=== PATIENT | male | born 1950 | race Caucasian/White ===

== ENCOUNTER → 2021-05-16 12:49 | Outpatient (CLI) | payer MEDICARE, SELFPAY ==
--- NOTE | ~2021-05-16 | MR_ITS ---
EXAMINATION: MR shoulder RT wo con DATE: 05/16/2021 14:16 INDICATION: Chronic right shoulder pain. TECHNIQUE: Magnetic resonance imaging (MRI) of the right shoulder was performed without intravenous c ontrast. Sequences included axial PD-weighted FS FSE, coronal oblique PD-weighted FS FSE and T2-weigh yaniv FS FSE, and sagittal oblique T2-weighted FS FSE and T1-weighted FSE. COMPARISON: None. FINDINGS: Coracoacromial arch: The acromion undersurface is curved in morphology (type II). There is severe acromioclavicular joint osteoarthritis including inferiorly directed osteophytes. There is mild subacromial/subdeltoid bursit is. Rotator cuff: There is severe supraspinatus tendinopathy with shallow bursal sided fraying. There is moderate infra spinatus tendinopathy. Teres minor tendon is normal. There is mild subscapularis tendinopathy. There is no asymmetric fatty atrophy of the rotator cuff muscle bellies. There is edema of the fat in the r otator interval. There is degenerative cystic change in greater tuberosity of the humerus. Biceps tendon and glenoid labrum: Biceps tendon is in bicipital groove. There is mild tendinopathy of the biceps anchor. There is degen eration of anterior glenoid labrum without well-defined tear. Fluid: There is no glenohumeral joint effusion. Bones/cartilage: There is cartilage surface irregularity of glenoid. Humeral head cartilage is normal. IMPRESSION: 1. Severe rotator cuff tendinopathy with shallow bursal sided fraying of supraspinatus tendon. 2. Mild subacromial/subdeltoid bursitis. 3. Mild glenoid chondrosis. 4. Mild biceps tendinopathy. 5. Severe acromioclavicular joint osteoarthritis. Reviewed, dictated and finalized at location A. WAY [employer] IMPRESSION: 1. Severe rotator cuff tendinopathy with shallow bursal sided fraying of supras pinatus tendon. 2. Mild subacromial/subdeltoid bursitis. 3. Mild glenoid chondrosis. 4. Mild biceps tendinopathy. 5. Severe acromioclavicular joint osteoarthritis.
== END ==
PROVIDERS: Visit Provider Orthopaedic Surgery
DX: M75.51 Bursitis of right shoulder (principal); M19.011 Primary osteoarthritis, right shoulder
CPT/HCPCS: 73221

== ENCOUNTER 2022-04-27 08:22 | Outpatient (CLI) | payer MEDICARE, SELFPAY ==
--- NOTE | ~2022-04-27 | MR_ITS ---
EXAMINATION: MR hip RT wo con DATE: 04/27/2022 09:53 INDICATION: Right groin pain TECHNIQUE: Magnetic resonance imaging (MRI) of the right hip was performed without intravenous contr ast. Sequences included full-field axial PD-weighted FS FSE and T1-weighted FSE, coronal of the pelvi s with PD-weighted FS FSE, T2-weighted FSE and T1-weighted FSE, small field of view of the right hip with axial PD-weighted FS FSE, sagittal PD-weighted FS FSE, coronal PD-weighted FS FSE and coronal T2 weighted FSE. Additional radial T1-weighted FGR oriented orthogonal to the acetabular rim were obt ained for evaluation of the labrum. COMPARISON: None FINDINGS: Bones/labrum/cartilage: Alignment is normal. No fracture, avascular necrosis or pathologic marrow replacing process. There i s a tear of the anterosuperior to posterior right acetabular labrum. There also appears to be a tear of the contralateral left acetabular labrum on the large [id number] images with fluid signal inten sity cleft at the chondral labral interface of the superolateral left acetabular labrum which is not diagnostically evaluated on the larger field of view images. There is mild to moderate nonuniform nael nt space narrowing at the right hip with some deep chondral ulceration with mild underlying edema-lik e signal change at the posterior right acetabulum. Fluid: Symmetric physiologic amount of fluid within both hip joints. Mild increased fluid signal surrounding the distal right gluteus minimus tendon consistent with mild bursitis. No bursitis or other abnormal fluid collections. Soft tissues: Normal and symmetric muscle bulk and signal in the pelvis and visualized proximal thighs. Moderate te ndinopathy without discrete tear at the anterior right greater trochanteric insertion of the right gl uteus minimus tendon. The left gluteus minimus tendon is normal. Mild tendinopathy without discrete t ear at the bilateral gluteus medius tendon insertions. Additional mild tendinopathy without tear at t he bilateral ischial tuberosity origins of the proximal hamstring tendons. The bilateral iliopsoas te ndons are normal. Mucosal trabeculation of the incompletely distended bladder likely related to chron ic outlet obstruction from the enlarged prostate which measures 5.9 x 4.1 cm. Sigmoid diverticulosis. No pathologically enlarged pelvic/inguinal lymphadenopathy. IMPRESSION: 1. Mild to moderate right hip osteoarthritis with diffuse labral tear. 2. Tear of the left acetabular labrum at least at the superolateral left labrum on the larger field o f view images. Left hip is not diagnostically evaluated. 3. Mild right gluteus minimus bursitis and moderate tendinopathy without discrete tear. Reviewed, dictated and finalized at location A. IMPRESSION: 1. Mild to moderate right hip osteoarthritis with diffuse labral tear. 2. Tear of the left acetabular labrum at least at the superolateral left labrum on the larger field of view images. Left hip is not diagnostically evaluated. 3. Mild right gluteus minimus bursitis and moderate tendinopathy without discre te tear.
== END 2022-04-27 08:23 | disposition home or self-care (01) ==
LOC: ANHIMG 08:32
PROVIDERS: Visit Provider Orthopaedic Surgery
DX: M16.11 Unilateral primary osteoarthritis, right hip (principal); M71.551 Other bursitis, not elsewhere classified, right hip
CPT/HCPCS: 73721

== ENCOUNTER → 2023-04-17 08:45 | Outpatient (CLI) | payer MEDICARE, SELFPAY ==
--- NOTE | ~2023-04-17 | MR_ITS ---
MRI of the right shoulder Technique: Axial proton-density fat-sat images, coronal proton density fat-sat and T2 fat-sat images, and sagittal T1-weighted and T2 fat-sat images were acquired. Clinical History: Pain COMPARISON: 05/16/2021 Findings: There is advanced AC joint degenerative change, with subacromial spur and bony productive c hange of the distal clavicle. There is reactive marrow edema about the joint. Cortical clavicular, co racoacromial, and coracohumeral ligaments are intact. There is a very focal high-grade to possibly focal full-thickness tear at the distal supraspinatus te ndon insertion measuring 3 x 3 mm. There is mild tendinosis of the supraspinatus and infraspinatus te ndons otherwise. Subscapularis tendon is intact. Tendon of the long head of the biceps is intact. No labral tear evident. Inferior glenohumeral ligament is intact. There is minimal fluid in the subacromial/subdeltoid bursa. No glenohumeral joint effusion or degenerative change. No muscle atrophy or edema. Impression: 3 x 3 mm focal area of high-grade partial or full-thickness tearing at the distal supraspinatous tend on insertion. Advanced AC joint degenerative change. Minimal subacromial/subdeltoid bursitis. Reviewed, dictated and finalized at [facility]. Impression: 3 x 3 mm focal area of high-grade partial or full-thickness tearing at the dist al supraspinatous tendon insertion. Advanced AC joint degenerative change. Minimal subacromial/subdeltoid bursitis.
== END ==
PROVIDERS: PCP Orthopaedic Surgery; Visit Provider Orthopaedic Surgery
DX: M19.011 Primary osteoarthritis, right shoulder (principal)
CPT/HCPCS: 73221